=== PATIENT | male | born 1975 | race Caucasian/White ===

== ENCOUNTER 2023-05-23 20:50 | Emergency (ER) | payer OTHER ==
[~2023-05-23] VITALS: Ht 175.3 cm; Wt 74.8 kg
[2023-05-23 21:05] VITALS: BP 160/78; PULSE 118; RESP 18; TEMP 97.8; O2SAT 100
[2023-05-23] MEDS ORDERED: ACETAMINOPHEN 325 MG TAB PO ONE (21:25)
[2023-05-23] MEDS ORDERED: ACET-10509 PO (23:34)
[2023-05-23] MEDS ORDERED: IBUP-2213 PO (23:34)
[2023-05-23 23:43] VITALS: BP 138/82; PULSE 85; RESP 18; TEMP 97.8; O2SAT 100
== END 2023-05-23 23:43 | disposition home or self-care (01) ==
LOC: MED 20:50
DX: S02.2XXA Fracture of nasal bones, initial encounter for closed fracture (principal); S01.311A Laceration without foreign body of right ear, initial encounter; Y08.89XA Assault by other specified means, initial encounter; Y93.89 Activity, other specified; Y92.89 Other specified places as the place of occurrence of the external cause; Y99.8 Other external cause status
CPT/HCPCS: 12014; 70450; 70486; 72125; 99284

== ENCOUNTER 2023-05-31 09:57 | Emergency (ER) | payer OTHER ==
[~2023-05-31] VITALS: Ht 175.3 cm; Wt 76.7 kg
[~2023-05-31 09:57] MED LIST: ACET-10509 PO; IBUP-2213 PO
[2023-05-31 10:16] VITALS: BP 142/84; PULSE 93; RESP 18; TEMP 98.2; O2SAT 100
[2023-05-31 12:27] VITALS: BP 140/82; PULSE 88; RESP 14; TEMP 98.4; O2SAT 100
== END 2023-05-31 12:27 | disposition home or self-care (01) ==
LOC: MED 09:57
DX: S02.2XXD Fracture of nasal bones, subsequent encounter for fracture with routine healing (principal); S01.311D Laceration without foreign body of right ear, subsequent encounter; S01.21XD Laceration without foreign body of nose, subsequent encounter; K11.20 Sialoadenitis, unspecified; Z48.02 Encounter for removal of sutures; Z79.899 Other long term (current) drug therapy; Z79.1 Long term (current) use of non-steroidal anti-inflammatories (NSAID); Y08.89XD Assault by other specified means, subsequent encounter
CPT/HCPCS: 99281